=== PATIENT | male | born 1950 | race Caucasian/White ===

== ENCOUNTER 2022-06-04 07:47 | Outpatient (CLI) | payer MEDICARE, OTHER, SELFPAY ==
--- NOTE | 2022-06-04 08:42 | W.ANESCHARGE ---
Anesthesia Charges Start Date/Time Anesthesia Start Date: 06/04/22 Anesthesia Start Time: 08:20 Stop Date/Time Anesthesia Stop Date: 06/04/22 Anesthesia Stop Time: 08:39 Summary Emergency: No Extremes of Age: Over 68-CPT 11937
--- NOTE | 2022-06-04 09:22 | W.ANESCHARGE ---
Anesthesia Charges Start Date/Time Anesthesia Start Date: 06/04/22 Anesthesia Start Time: 08:20 Stop Date/Time Anesthesia Stop Date: 06/04/22 Anesthesia Stop Time: 08:39 Summary Emergency: No Extremes of Age: Over 68-CPT 51897
== END 2022-06-04 07:48 | disposition home or self-care (01) ==
PROVIDERS: PCP Family Medicine; Visit Provider Internal Medicine
DX: Z12.11 Encounter for screening for malignant neoplasm of colon (principal); K63.5 Polyp of colon; K57.30 Diverticulosis of large intestine without perforation or abscess without bleeding
CPT/HCPCS: 00811; 45380; 88305; 99100; J2704

== ENCOUNTER 2022-07-10 10:38 | Emergency (ER) | payer MEDICARE, OTHER, SELFPAY ==
[2022-07-10 10:43] VITALS: BP 170/98; PULSE 75; RESP 20; TEMP 37.2; O2SAT 97; BMI 26.2
[2022-07-10 10:56] LABS: Appearance Urine Clear (Clear); Bilirubin Urine Negative (Negative); Blood Urine 3+ (Negative); Color Urine Yellow (Yellow); Glucose Urine Negative (Negative); Ketones Urine Negative (Negative); Leukocyte Esterase Urine 1+ (Negative); Nitrite Urine Negative (Negative); Protein Urine 1+ (Negative); Specific Gravity Urine >= 1.030 (1.000-1.030); Urobilinogen Urine 0.2 (0.2-1.0); pH Urine 5.5 (5.0-8.5)
--- NOTE | 2022-07-10 11:04 | ED.GENADULT ---
HPI - General Adult General Chief complaint: Urogenital Problems, Male Stated complaint: Possible UTI Time Seen by Provider: 07/10/22 10:48 Source: patient Mode of arrival: ambulatory Limitations: no limitations History of Present Illness HPI narrative: 71-year-old male coming in today concerned about a UTI. States that he feels increased urinary urgency and dysuria. Denies any blood in his urine. Denies any abdominal pain or flank pain. Denies fevers chills nausea or vomiting. States that he has had a UTI in the past, feels just like this. Denies any sexual activity. No penile discharge. Related Data Home Medications Medication Instructions Recorded Confirmed fluticasone propionate 110 1-2 inhalation BID 03/31/22 05/26/22 mcg/actuation HFA aerosol inhaler melatonin 10 mg tablet 10 mg PO .Bedtime 03/31/22 05/26/22 omeprazole 20 mg capsule,delayed 20 mg PO QDAY 05/26/22 05/26/22 release simvastatin 20 mg tablet 20 mg PO .Bedtime 05/26/22 05/26/22 Previous Rx's Medication Instructions Recorded peg 3350-electrolytes 236 240 ml PO Q10M #4,000 mL 05/12/22 gram-22.74 gram-6.74 gram-5.86 gram solution (Golytely) cephalexin 500 mg capsule 500 mg PO TID 7 days #21 caps 07/10/22 Allergies Allergy/AdvReac Type Severity Reaction Status Date / Time amoxicillin AdvReac Mild Diarrhea Verified 05/26/22 13:18 Review of Systems Status of ROS: Reports: 10 or more systems reviewed and unremarkable except as noted in History and below PFSH PFS Medical History Achilles tendon disorder Surgical History 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 Alert and oriented. Answers questions appropriately. Mood and affect are appropriate. Thoughts are goal oriented and rational. No tangential or magical thinking noted. Patient speaks in full sentences without needing to catch their breath. HEENT: Normocephalic atraumatic. Pupils are equally round reactive to light. Extraocular muscles are intact. Conjunctivae are moist without any icterus noted. Cardiovascular: Heart is regular rate and rhythm S1 and S2 are present without any murmurs. Lungs: Clear to auscultation bilaterally no wheezes rhonchi or rales are appreciated. Abdomen: Soft and nontender nondistended with normal bowel sounds. No guarding or rebound. Skin: Well perfused without any obvious rashes. Const: Vital Signs, click to edit/add: Vital Signs - 24 hr 07/10/22 10:43 Temperature 98.9 F Pulse Rate [Pulse Oximeter] 75 Respiratory Rate 20 Blood Pressure [Ri ght Upper Arm] 170/98 H Pulse Oximetry 97 Oxygen Delivery Me thod Room Air Course Course Hospital Course: Urinalysis was done and is grossly positive for signs of infection. Urine culture pending. Vital Signs Vital signs: Initial Vital Signs Temperature 98.9 F 07/10/22 10:43 Temperature Source Temporal Artery Scan 07/10/22 10:43 Pulse Rate 75 07/10/22 10:43 Respiratory Rate 20 07/10/22 10:43 Blood Pressure 170/98 H 07/10/22 10:43 Blood Pressure Mean 122 07/10/22 10:43 Blood Pressure Position Supine 07/10/22 10:43 Pulse Oximetry 97 07/10/22 10:43 Oxygen Delivery Method 07/10/22 10:43 Vital Signs Temperature 98.9 F 07/10/22 10:43 Pulse Rate 75 07/10/22 10:43 Respiratory Rate 20 07/10/22 10:43 Blood Pressure 170/98 H 07/10/22 10:43 Pulse Oximetry 97 07/10/22 10:43 Oxygen Delivery Method 07/10/22 10:43 Temperature 98.9 F 07/10/22 10:43 Pulse Rate 75 07/10/22 10:43 Respiratory Rate 20 07/10/22 10:43 Blood Pressure 170/98 H 07/10/22 10:43 Pulse Oximetry 97 07/10/22 10:43 Oxygen Delivery Method 07/10/22 10:43 Medical Decision Making MDM Narrative Medical decision making narrative: 71-year-old male with a UTI. Will treat with Keflex. Recommend follow-up with primary care provider in the next 10-14 days. Lab Data Lab results reviewed: Yes I reviewed the patient's lab results Labs: Lab Results 07/10/22 Range/Units 10:49 Urine Color Yellow (Yellow) Urine Appearance Clear (Clear) Urine pH 5.5 (5.0-8.5) Ur Specific [place] >= 1.030 (1.000-1.030) Urine Protein 1+ A (Negative) Urine Glucose (UA) Negative (Negative) Urine Ketones Negative (Negative) Urine Blood 3+ A (Negative) Urine Nitrite Negative (Negative) Urine Bilirubin Negative (Negative) Urine Urobilinogen 0.2 (0.2-1.0) Ur Leukocyte Esterase 1+ A (Negative) Urine RBC 25-50 A (0-2) Urine WBC >100 A (0-5) Ur Squamous Epith Cells Few (None-Few) Other Sediment FEW YEAST (None) Urine Bacteria Moderate A (None) Discharge Plan Discharge Clinical Impression: Urinary tract infection Patient Disposition: Home, Self-Care Condition: Stable Additional Instructions: Take all antibiotics as prescribed. Okay to use Tylenol as needed for discomfort. Follow-up with your primary care provider in 10-14 days for repeat urine test to make sure it is clear. Prescriptions: New cephalexin 500 mg capsule 500 mg PO TID 7 Days Qty: 21 0RF No Action melatonin 10 mg tablet 10 mg PO .Bedtime fluticasone propionate 110 mcg/actuation HFA aerosol inhaler 1-2 inhalation BID simvastatin 20 mg tablet 20 mg PO .Bedtime omeprazole 20 mg capsule,delayed release(DR/EC) 20 mg PO QDAY peg 3350-electrolytes [Golytely] 236-22.74-6.74 -5.86 gram recon soln 240 ml PO Q10M Qty: 4000 0RF Rx Instructions: Follow colonoscopy prep instructions given in clinic. Follow Up/Referrals: Jorden Teran MD [Primary Care Provider] - Stand Alone Forms: [employer] Info Instructions
[2022-07-10 11:06] LABS: RBC Urine 25-50 (0-2)
[2022-07-10 11:07] LABS: Bacteria Urine Moderate; Other Sediment Urine FEW YEAST; Squamous Epithelial Cell Urine Few (None-Few); WBC Urine >100 (0-5)
== END 2022-07-10 11:31 | disposition home or self-care (01) ==
PROVIDERS: Emergency Provider Family Medicine; PCP Family Medicine
DX: N39.0 Urinary tract infection, site not specified (principal)
CPT/HCPCS: 81001; 87086; 87186; 99283; 99284